=== PATIENT | male | born 1980 | race Caucasian/White ===

== ENCOUNTER 2021-11-28 00:42 | Inpatient (IN) | payer BC ==
[2021-11-28] VITALS (21 sets, daily range): BP systolic 126–207; BP diastolic 66–99
[~2021-11-28] VITALS: Ht 170.2 cm; Wt 150.4 kg
[~2021-11-28 00:42] MED LIST: ASPI-1265 PO; ATOR10TA PO; NICO-687 TD; PROM12.512 PO
[2021-11-28 02:00] LABS: BASOPHILS # (AUTO) 0.1 X10'3 (0-0.2); EOSINOPHILS # (AUTO) 0.2 X10'3 (0-0.9); EOSINOPHILS % (AUTO) 1.7 % (0-6); HEMATOCRIT 42.9 % (42.0-52.0); HEMOGLOBIN 14.3 g/dl (14.0-17.9); LYMPHOCYTES # (AUTO) 1.7 X10'3 (1.1-4.8); LYMPHOCYTES % (AUTO) 15.5 % (21-51); MEAN CORPUSCULAR HEMOGLOBIN 30.2 PG (27.0-31.0); MEAN CORPUSCULAR HGB CONC 33.3 g/dL (33.0-36.5); MEAN CORPUSCULAR VOLUME 90.7 FL (78-98); MEAN PLATELET VOLUME 8.5 FL (7.4-10.4); MONOCYTES # (AUTO) 0.8 X10'3 (0-0.9); MONOCYTES % (AUTO) 7.7 % (2-12); NEUTROPHILS # (AUTO) 8.1 X10'3 (1.8-7.7); NEUTROPHILS % (AUTO) 74.1 % (42-75); PLATELET COUNT 239 X10'3 (140-440); RED BLOOD COUNT 4.73 X10'6 (4.70-6.10); RED CELL DISTRIBUTION WIDTH 14.5 % (11.5-14.5); WHITE BLOOD COUNT 10.9 X10'3 (4.5-11.0)
[2021-11-28 02:22] LABS: ALANINE AMINOTRANSFERASE 63 U/L (12-78); ALBUMIN/GLOBULIN RATIO 1.2 (1.1-1.5); ALKALINE PHOSPHATASE 103 IU/L (46-116); ANION GAP 10 (8-16); ASPARTATE AMINO TRANSFERASE 28 U/L (10-37); BILIRUBIN,TOTAL 0.2 MG/DL (0.1-1.0); BLOOD UREA NITROGEN 19 MG/DL (7-18); BUN/CREATININE RATIO 16.2 (5.4-32.0); CALCIUM 9.7 MG/DL (8.5-10.1); CHLORIDE 99 MMOL/L (99-107); CREATININE 1.17 MG/DL (0.60-1.10); GLUCOSE 191 MG/DL (70-104); SODIUM 136 MMOL/L (135-145); TOTAL CARBON DIOXIDE 27.4 MMOL/L (24-32); TOTAL PROTEIN 7.3 G/DL (6.4-8.2); eGFR 68 ML/MIN
[2021-11-28 02:38] LABS: LIPASE 77 U/L (73-393)
[2021-11-28] MEDS ORDERED: ondansetron/PF 4mg/2ml inj IV ONE (02:45)
[2021-11-28] MEDS ORDERED: morphine 4 MG/ML inj SYRINge IV PRN ×2 (02:45→10:10)
[2021-11-28] MEDS ORDERED: normal saline 1000ML IV soln IVB ONE (02:45)
[2021-11-28] MEDS ORDERED: HYDROmorphone 1 mg/ml syringe IV ONE (04:10)
[2021-11-28] MEDS ORDERED: piperacillin/tazo 3.375gm/50ml 50 ML IV ONE (04:15)
[2021-11-28 04:32] LABS: CHOL/HDL RATIO 3.4 (0.00-4.99); CHOLESTEROL 181 MG/DL (0-200); HDL CHOLESTEROL 53 MG/DL (35-60); LDL CHOLESTEROL 104 MG/DL (50-100); TRIGLYCERIDES 61 MG/DL (20-135)
[2021-11-28] MEDS ORDERED: AMLO1CAP77 PO (06:24)
[2021-11-28] MEDS ORDERED: LOSA25TA96 PO (06:24)
[2021-11-28] MEDS ORDERED: METO1TAB12 PO ×2 (06:24)
[2021-11-28] MEDS ORDERED: BUPIVAcaine 0.5% inj/PF 30 ML ONE (09:03)
[2021-11-28] MEDS ORDERED: ondansetron/PF 4mg/2ml inj IV PRN ×2 (10:10→11:30)
[2021-11-28] MEDS ORDERED: meperidine/PF 25mg/ml syringe IV PRN ×3 (10:10)
[2021-11-28] MEDS ORDERED: morphine 2 MG/ML inj. syringe IV PRN (10:10)
[2021-11-28] MEDS ORDERED: proCHLORperazine 10 MG/2 ml inj IV PRN (10:10)
[2021-11-28] MEDS ORDERED: fentaNYL /PF 50mcg/ml 5ml ampule ONE (10:17)
[2021-11-28] MEDS ORDERED: propofol inj 20 ML IV ONE (10:17)
[2021-11-28] MEDS ORDERED: midazolam 1 mg/ML 2ml injection ONE (10:17)
[2021-11-28] MEDS ORDERED: rocuronium 10mg/ml inj IV ONE (10:18)
[2021-11-28] MEDS ORDERED: ceFAZolin 1000mg inj ONE ×3 (10:37)
[2021-11-28] MEDS ORDERED: bacitracin 15gm ointment TP ONE (11:10)
[2021-11-28] MEDS ORDERED: neostigmine methylsulfate 1 MG/ML 10ml vial ONE (11:11)
[2021-11-28] MEDS ORDERED: glycopyrrolate 0.2mg/ml inj ONE (11:13)
[2021-11-28] MEDS ORDERED: acetaminophen 1,000mg/100ml IV 100 ML IV ONE (11:18)
[2021-11-28] MEDS ORDERED: ketorolac trometh. 30mg/ml inj. ONE (11:18)
[2021-11-28] MEDS ORDERED: magnesium 4gm in 100ml NS 100 ML IV PRN (11:30)
[2021-11-28] MEDS ORDERED: magnesium 2GM in 50ml NS 50 ML IV PRN (11:30)
[2021-11-28] MEDS ORDERED: sugammadex 200mg/2ml injection IV ONE (11:30)
[2021-11-28] MEDS: normal saline 1000ml 1,000 ML IV SCH ×2 (11:30→21:52)
[2021-11-28] MEDS ORDERED: potassium CL 10mEq/100ml bag 100 ML IV PRN (11:30)
[2021-11-28] MEDS ORDERED: HYDROcodone/acetaminophen 5mg/325mg tablet PO PRN (11:30)
[2021-11-28] MEDS ORDERED: potassium Cl 20 mEq SR tablet PO PRN ×2 (11:30)
[2021-11-28] MEDS ORDERED: magnesium Cl slow-release 64mg tablet PO PRN (11:30)
--- NOTE | 2021-11-28 11:34 | NUR ---
Received from OR via [facility], accompanied by Anesthesiologist DR KNIGHT and report given by Anesthesiologist AND POULTRY INSEMINATOR. PT VERY DROWSY, NO S/S OF DISTRESS/DISCOMFORT. ABDOMEN W/4 LAP SITES W/BANDAIDS CDI. Addendum: 11/28/21 at 1215 by Manasa Waters RN Amended: Links added.
[2021-11-28] MEDS ORDERED: labetalol 20mg/4ml (5mg/ml) syringe IV ONE (11:53)
[2021-11-28] MEDS: labetalol 20mg/4ml (5mg/ml) syringe IV PRN ×2 (11:57→12:13)
[2021-11-28] MEDS ORDERED: LOSA50TA64 PO (12:13)
[2021-11-28] MEDS ORDERED: METO100T14 PO (12:13)
[2021-11-28] MEDS ORDERED: AMLO10TA13 PO (12:13)
[2021-11-28] MEDS: ringers solution, lacted 1,000 ML IV SCH ×3 (12:36→14:28)
--- NOTE | 2021-11-28 13:14 | NUR ---
Report called to receiving nurse. Transferred via GURNEY ON 02 W/3 BAGS OF Belongings TO ROOM 355B, TRANSFERRED PT OVER TO BED W/EASY SLIDE, PT TOLERATED WELL. BLL, CALL LIGHT GIVEN, SIDE RAILS UP X 2, NURSES AIDE AT BEDSIDE TO RECEIVE PT, RECEIVING RN AWARE OF PTS ARRIVAL. Special Issues communicated to receiving nurse. YES. Addendum: 11/28/21 at 1331 by Manasa Waters RN Amended: Links added.
--- NOTE | 2021-11-28 14:10 | NUR ---
Student documentation: I have reviewed all interventions, assessments performed and documented by Lo PATEL. Student Medication Administration: For all medication-pass' in the time frame of 8616-9628, all medications were reviewed, dispensed, administered and documented per hospital policy by Lo PATEL.
[2021-11-28 15:14] LABS: MAGNESIUM 1.9 MG/DL (1.5-2.4); POTASSIUM 4.2 MMOL/L (3.5-5.1)
--- NOTE | 2021-11-28 18:13 | NUR ---
Problems reprioritized. Patient report given, questions answered & plan of care reviewed with ARSH ALVES.
--- NOTE | 2021-11-28 18:24 | NUR ---
Patient in room [facility]. I have received report from Keturah CABAN and had the opportunity to ask questions and assume patient care.
[2021-11-28] MEDS: morphine 2 MG/ML inj. syringe IV PRN (19:12)
[2021-11-28] MEDS: K and/or MAG REPLACEMENT MC SCH (20:00)
[2021-11-28] MEDS ORDERED: temazepam 15mg capsule PO PRN (21:00)
[2021-11-29] VITALS: BP 156/73
[2021-11-29] MEDS: morphine 2 MG/ML inj. syringe IV PRN ×2 (00:08→03:41)
[2021-11-29 04:00] VITALS: BP 141/73
[2021-11-29 06:42] LABS: BASOPHILS # (AUTO) 0.1 X10'3 (0-0.2); BASOPHILS % (AUTO) 0.6 % (0-1); EOSINOPHILS # (AUTO) 0.1 X10'3 (0-0.9); EOSINOPHILS % (AUTO) 0.6 % (0-6); HEMATOCRIT 39.2 % (42.0-52.0); HEMOGLOBIN 13.2 g/dl (14.0-17.9); LYMPHOCYTES # (AUTO) 1.4 X10'3 (1.1-4.8); LYMPHOCYTES % (AUTO) 13.1 % (21-51); MEAN CORPUSCULAR HEMOGLOBIN 30.4 PG (27.0-31.0); MEAN CORPUSCULAR HGB CONC 33.7 g/dL (33.0-36.5); MEAN CORPUSCULAR VOLUME 90.3 FL (78-98); MEAN PLATELET VOLUME 8.5 FL (7.4-10.4); MONOCYTES % (AUTO) 9.6 % (2-12); NEUTROPHILS # (AUTO) 8.1 X10'3 (1.8-7.7); NEUTROPHILS % (AUTO) 76.1 % (42-75); PLATELET COUNT 216 X10'3 (140-440); RED BLOOD COUNT 4.34 X10'6 (4.70-6.10); RED CELL DISTRIBUTION WIDTH 14.8 % (11.5-14.5); WHITE BLOOD COUNT 10.7 X10'3 (4.5-11.0)
--- NOTE | 2021-11-29 06:50 | NUR ---
Problems reprioritized. Patient report given, questions answered & plan of care reviewed with Keturah CABAN.
[2021-11-29 07:00] VITALS: BP 145/79
[2021-11-29 07:48] LABS: ALBUMIN 3.4 G/DL (3.4-5.0); ANION GAP 11 (8-16); BLOOD UREA NITROGEN 17 MG/DL (7-18); BUN/CREATININE RATIO 18.7 (5.4-32.0); CALCIUM 8.5 MG/DL (8.5-10.1); CHLORIDE 103 MMOL/L (99-107); CREATININE 0.91 MG/DL (0.60-1.10); GLUCOSE 123 MG/DL (70-104); MAGNESIUM 1.8 MG/DL (1.5-2.4); POTASSIUM 4.4 MMOL/L (3.5-5.1); SODIUM 141 MMOL/L (135-145); eGFR > 90 ML/MIN
[2021-11-29] MEDS: K and/or MAG REPLACEMENT MC SCH (08:00)
[2021-11-29] MEDS: normal saline 1000ml 1,000 ML IV SCH ×2 (08:11→17:30)
--- NOTE | 2021-11-29 09:07 | NUR ---
Patient room change to 356B
--- NOTE | 2021-11-29 10:44 | NUR ---
O2 Sat at rest on room air: 87% If below 89%: Recovery O2 Sat at rest on 2 LPM: 94%:___% via (mask/nasal cannula, etc..) No further documentation is necessary. If O2 Sat did not drop below 89% on room air,ambulate patient on room air. O2 Sat while ambulating on room air:___% Recovery O2 Sat while ambulating on ___LPM:___% No further documentation is necessary. If patient does not drop below 89% while ambulating, he/she does not qualify for home O2.
[2021-11-29 11:00] VITALS: BP 158/89
--- NOTE | 2021-11-29 18:08 | NUR ---
Problems reprioritized. Patient report given, questions answered & plan of care reviewed with Juliet MOURA .
--- NOTE | 2021-11-29 19:00 | NUR ---
PER AM RN, SARAH Gallego, PT'S OXYGEN SATURATIONS WERE 96% ON RA.
== END 2021-11-29 18:56 | disposition home or self-care (01) | DRG 418 ==
LOC: ER 00:43 → SUR 3N 11:48 → ER 14:18 → SUR 3N 14:18 → ER 11-29 09:00 → SUR 3N 11-29 09:00
PROVIDERS: ADMIT Internal Medicine; ATTEND Internal Medicine
PROC: 0WQF4ZZ Repair Abdominal Wall, Percutaneous Endoscopic Approach (ICD-10-PCS; 2021-11-28)
PROC: 0FT44ZZ Resection of Gallbladder, Percutaneous Endoscopic Approach (ICD-10-PCS; principal; 2021-11-28 10:13)
DX: K81.0 Acute cholecystitis (principal); Z68.43 Body mass index [BMI] 50.0-59.9, adult; Z60.2 Problems related to living alone; I10 Essential (primary) hypertension; E66.01 Morbid (severe) obesity due to excess calories; Z20.822 Contact with and (suspected) exposure to COVID-19; K42.9 Umbilical hernia without obstruction or gangrene; Z86.73 Personal history of transient ischemic attack (TIA), and cerebral infarction without residual deficits; Z79.899 Other long term (current) drug therapy; Z79.82 Long term (current) use of aspirin
CPT/HCPCS: 96374; 96375; 99285; Z7506; Z7508; 36415; 71045; 74176; 80048; 80053; 80061; 83605; 83690; 83735; 83880; 84132; 84484; 85025; 87635; 93005; A4215; A4618; A7000; C9803; G0378; J0131; J0690; J1170; J1885; J2250; J2270; J2405; J2543; J2704; J2710; J3010; J3490; J7030; J7120; S0020

== ENCOUNTER 2022-10-11 17:24 | Inpatient (IN) | payer BC ==
[~2022-10-11] VITALS: Ht 170.2 cm; Wt 149.5 kg
[~2022-10-11 17:24] MED LIST changes: +AMLO10TA13 PO; -ASPI-1265 PO; -ATOR10TA PO; +LOSA50TA64 PO; +METO100T14 PO; -NICO-687 TD; -PROM12.512 PO
[2022-10-11 18:05] LABS: BASOPHILS # (AUTO) 0.1 X10'3 (0-0.2); BASOPHILS % (AUTO) 0.7 % (0-1); EOSINOPHILS # (AUTO) 0.2 X10'3 (0-0.9); EOSINOPHILS % (AUTO) 2.1 % (0-6); HEMATOCRIT 42.7 % (42.0-52.0); HEMOGLOBIN 13.8 g/dl (14.0-17.9); LYMPHOCYTES % (AUTO) 16.9 % (21-51); MEAN CORPUSCULAR HEMOGLOBIN 29.4 PG (27.0-31.0); MEAN CORPUSCULAR HGB CONC 32.4 g/dL (33.0-36.5); MEAN CORPUSCULAR VOLUME 90.6 FL (78-98); MEAN PLATELET VOLUME 8.9 FL (7.4-10.4); MONOCYTES # (AUTO) 0.8 X10'3 (0-0.9); MONOCYTES % (AUTO) 6.8 % (2-12); NEUTROPHILS # (AUTO) 8.8 X10'3 (1.8-7.7); NEUTROPHILS % (AUTO) 73.5 % (42-75); PLATELET COUNT 244 X10'3 (140-440); RED BLOOD COUNT 4.71 X10'6 (4.70-6.10); RED CELL DISTRIBUTION WIDTH 15.2 % (11.5-14.5); WHITE BLOOD COUNT 11.9 X10'3 (4.5-11.0)
[2022-10-11 18:29] LABS: ALANINE AMINOTRANSFERASE 58 U/L (12-78); ALBUMIN 3.9 G/DL (3.4-5.0); ALBUMIN/GLOBULIN RATIO 1.1 (1.1-1.5); ALKALINE PHOSPHATASE 96 IU/L (46-116); ANION GAP 7 (8-16); ASPARTATE AMINO TRANSFERASE 33 U/L (10-37); BILIRUBIN,TOTAL 0.6 MG/DL (0.1-1.0); BLOOD UREA NITROGEN 19 MG/DL (7-18); BUN/CREATININE RATIO 21.1 (5.4-32.0); CALCIUM 9.7 MG/DL (8.5-10.1); CHLORIDE 103 MMOL/L (99-107); GLUCOSE 107 MG/DL (70-104); MAGNESIUM 2.1 MG/DL (1.5-2.4); SODIUM 140 MMOL/L (135-145); TOTAL CARBON DIOXIDE 30.1 MMOL/L (24-32); TOTAL PROTEIN 7.4 G/DL (6.4-8.2); eGFR > 90 ML/MIN
[2022-10-11] MEDS ORDERED: niCARDipine-NS 40mg/200ml IVPB 200 ML IV SCH (19:25)
[2022-10-11] MEDS: niCARDipine-NS 40mg/200ml IVPB 200 ML IV SCH (20:29)
[2022-10-11] MEDS ORDERED: metoprolol succinate 25mg (24-HOUR) SR. Tablet PO STA (20:52)
[2022-10-11] MEDS ORDERED: furosemide 10 MG/1 ML 10ml inj IV ONE (20:55)
[2022-10-11] MEDS ORDERED: amLODIPine 5mg tablet PO ONE (20:57)
[2022-10-12] VITALS (7 sets, daily range): BP systolic 136–179; BP diastolic 69–91
[2022-10-12] MEDS ORDERED: magnesium hydroxide 30ml (MOM) UD suspension PO PRN (01:35)
[2022-10-12] MEDS ORDERED: magnesium 4gm in 100ml NS 100 ML IV PRN (01:35)
[2022-10-12] MEDS ORDERED: mag hydrox/Alum hydrox/simeth 30ml oral suspension PO PRN (01:35)
[2022-10-12] MEDS ORDERED: PERFLUTREN PROTEIN-A MICROSPHR (Optison) 0.22 MG/ML 3ML VIAL IV ONE (01:35)
[2022-10-12] MEDS ORDERED: potassium Cl 40MEQ/1/2NS 520ml 520 ML IV PRN (01:35)
[2022-10-12] MEDS ORDERED: potassium Cl 20 mEq SR tablet PO PRN ×2 (01:35)
[2022-10-12] MEDS ORDERED: magnesium Cl slow-release 64mg tablet PO PRN (01:35)
[2022-10-12] MEDS ORDERED: ondansetron/PF 4mg/2ml inj IV PRN (01:35)
[2022-10-12] MEDS: acetaminophen 325mg tablet PO PRN ×2 (04:47→12:39)
[2022-10-12] MEDS: niCARDipine-NS 40mg/200ml IVPB 200 ML IV SCH ×3 (06:02→21:51)
[2022-10-12] MEDS: docusate sod 100mg capsule PO SCH ×2 (07:16→21:24)
[2022-10-12] MEDS: furosemide 10 MG/1 ML 10ml inj IV SCH (07:32)
[2022-10-12] MEDS: metoprolol succinate 25mg (24-HOUR) SR. Tablet PO SCH (07:33)
[2022-10-12] MEDS: lisinopril 10 MG tablet PO SCH (07:33)
[2022-10-12] MEDS: heparin, porcine 5000 units/ml vial SQ SCH ×2 (07:33→21:31)
[2022-10-12] MEDS ORDERED: amLODIPine 5mg tablet PO ONE (12:54)
[2022-10-12] MEDS ORDERED: metoprolol tartrate 1mg/ml inj IV PRN (13:50)
[2022-10-12] MEDS ORDERED: regadenoson 0.4mg/5ml syringe IV PRN (13:50)
[2022-10-12] MEDS ORDERED: aminophylline 250mg/10ml inj. IV PRN (13:50)
[2022-10-12] MEDS ORDERED: nitroGLYCERIN 0.4mg SUBLingual tab SL PRN (13:50)
[2022-10-13] VITALS (27 sets, daily range): BP systolic 110–167; BP diastolic 59–96
[2022-10-13] MEDS: acetaminophen 325mg tablet PO PRN (02:04)
[2022-10-13 06:20] LABS: BASOPHILS # (AUTO) 0.1 X10'3 (0-0.2); BASOPHILS % (AUTO) 0.5 % (0-1); EOSINOPHILS # (AUTO) 0.2 X10'3 (0-0.9); EOSINOPHILS % (AUTO) 1.2 % (0-6); HEMATOCRIT 40.2 % (42.0-52.0); LYMPHOCYTES # (AUTO) 1.8 X10'3 (1.1-4.8); LYMPHOCYTES % (AUTO) 13.3 % (21-51); MEAN CORPUSCULAR HEMOGLOBIN 29.3 PG (27.0-31.0); MEAN CORPUSCULAR HGB CONC 32.3 g/dL (33.0-36.5); MEAN CORPUSCULAR VOLUME 90.8 FL (78-98); MEAN PLATELET VOLUME 8.9 FL (7.4-10.4); MONOCYTES # (AUTO) 1.1 X10'3 (0-0.9); MONOCYTES % (AUTO) 8.1 % (2-12); NEUTROPHILS # (AUTO) 10.4 X10'3 (1.8-7.7); NEUTROPHILS % (AUTO) 76.9 % (42-75); PLATELET COUNT 241 X10'3 (140-440); RED BLOOD COUNT 4.43 X10'6 (4.70-6.10); RED CELL DISTRIBUTION WIDTH 14.9 % (11.5-14.5); WHITE BLOOD COUNT 13.6 X10'3 (4.5-11.0)
[2022-10-13 06:24] LABS: ALANINE AMINOTRANSFERASE 59 U/L (12-78); ALBUMIN 3.6 G/DL (3.4-5.0); ALBUMIN/GLOBULIN RATIO 1.1 (1.1-1.5); ALKALINE PHOSPHATASE 88 IU/L (46-116); ANION GAP 7 (8-16); ASPARTATE AMINO TRANSFERASE 33 U/L (10-37); BILIRUBIN,TOTAL 0.7 MG/DL (0.1-1.0); BLOOD UREA NITROGEN 22 MG/DL (7-18); BUN/CREATININE RATIO 22.7 (5.4-32.0); CALCIUM 9.1 MG/DL (8.5-10.1); CHLORIDE 101 MMOL/L (99-107); CHOL/HDL RATIO 3.2 (0.00-4.99); CHOLESTEROL 152 MG/DL (0-200); CREATININE 0.97 MG/DL (0.60-1.10); GLUCOSE 110 MG/DL (70-104); HDL CHOLESTEROL 47 MG/DL (35-60); LDL CHOLESTEROL 93 MG/DL (50-100); POTASSIUM 3.6 MMOL/L (3.5-5.1); SODIUM 138 MMOL/L (135-145); TOTAL CARBON DIOXIDE 30.4 MMOL/L (24-32); TOTAL PROTEIN 6.9 G/DL (6.4-8.2); TRIGLYCERIDES 50 MG/DL (20-135); eGFR 84 ML/MIN
[2022-10-13] MEDS: niCARDipine-NS 40mg/200ml IVPB 200 ML IV SCH ×3 (06:44→19:26)
[2022-10-13] MEDS: docusate sod 100mg capsule PO SCH ×2 (08:00→19:26)
[2022-10-13 08:06] LABS: HEMOGLOBIN A1C 6.5 % (4.5-6.2)
[2022-10-13] MEDS: amLODIPine 5mg tablet PO SCH (10:47)
[2022-10-13] MEDS: furosemide 10 MG/1 ML 10ml inj IV SCH (10:48)
[2022-10-13] MEDS: lisinopril 10 MG tablet PO SCH (10:49)
[2022-10-13] MEDS: metoprolol succinate 25mg (24-HOUR) SR. Tablet PO SCH (10:49)
[2022-10-13] MEDS: heparin, porcine 5000 units/ml vial SQ SCH ×2 (10:50→19:25)
[2022-10-13] MEDS ORDERED: lisinopril 10 MG tablet PO ONE (20:00)
[2022-10-13] MEDS ORDERED: metoprolol succinate 25mg (24-HOUR) SR. Tablet PO ONE (20:00)
[2022-10-14 02:00] VITALS: BP 156/96
[2022-10-14] MEDS: niCARDipine-NS 40mg/200ml IVPB 200 ML IV SCH (04:28)
--- NOTE | 2022-10-14 06:12 | NUR ---
[id number] Pt. is awake alert oriented has visitor at [facility] wants to go home tonight advised to stay until am for MD discharge. Pt. has been off antihypertensive gtt since 4pm. Evening doses of po antihypertensives given. BP Systolic has been 155. Pt. is ambulatory to BR voids per urinal claire clear urine. Plan for home when medically cleared on home hypertensive meds.
[2022-10-14 07:00] VITALS: BP 141/91
[2022-10-14] MEDS ORDERED: lisinopril 10 MG tablet PO SCH (08:00)
[2022-10-14] MEDS ORDERED: metoprolol succinate 25mg (24-HOUR) SR. Tablet PO SCH (08:00)
[2022-10-14] MEDS: heparin, porcine 5000 units/ml vial SQ SCH (08:03)
[2022-10-14] MEDS: amLODIPine 5mg tablet PO SCH (08:03)
[2022-10-14] MEDS: docusate sod 100mg capsule PO SCH (08:03)
[2022-10-14 08:04] VITALS: BP_SYST 141
[2022-10-14 09:49] LABS: BASOPHILS # (AUTO) 0.1 X10'3 (0-0.2); BASOPHILS % (AUTO) 0.8 % (0-1); EOSINOPHILS # (AUTO) 0.2 X10'3 (0-0.9); EOSINOPHILS % (AUTO) 2.4 % (0-6); HEMATOCRIT 42.3 % (42.0-52.0); HEMOGLOBIN 13.9 g/dl (14.0-17.9); LYMPHOCYTES # (AUTO) 1.7 X10'3 (1.1-4.8); LYMPHOCYTES % (AUTO) 16.8 % (21-51); MEAN CORPUSCULAR HEMOGLOBIN 29.8 PG (27.0-31.0); MEAN CORPUSCULAR HGB CONC 32.9 g/dL (33.0-36.5); MEAN CORPUSCULAR VOLUME 90.8 FL (78-98); MEAN PLATELET VOLUME 8.5 FL (7.4-10.4); MONOCYTES % (AUTO) 10.1 % (2-12); NEUTROPHILS # (AUTO) 7.1 X10'3 (1.8-7.7); NEUTROPHILS % (AUTO) 69.9 % (42-75); PLATELET COUNT 254 X10'3 (140-440); RED BLOOD COUNT 4.66 X10'6 (4.70-6.10); RED CELL DISTRIBUTION WIDTH 15.1 % (11.5-14.5); WHITE BLOOD COUNT 10.2 X10'3 (4.5-11.0)
[2022-10-14 10:07] LABS: ALANINE AMINOTRANSFERASE 60 U/L (12-78); ALBUMIN 3.9 G/DL (3.4-5.0); ALKALINE PHOSPHATASE 101 IU/L (46-116); ASPARTATE AMINO TRANSFERASE 34 U/L (10-37); BILIRUBIN,TOTAL 0.6 MG/DL (0.1-1.0); BLOOD UREA NITROGEN 21 MG/DL (7-18); BUN/CREATININE RATIO 20.2 (5.4-32.0); CALCIUM 9.4 MG/DL (8.5-10.1); CHLORIDE 101 MMOL/L (99-107); CREATININE 1.04 MG/DL (0.60-1.10); MAGNESIUM 2.1 MG/DL (1.5-2.4); POTASSIUM 3.6 MMOL/L (3.5-5.1); TOTAL CARBON DIOXIDE 28.6 MMOL/L (24-32); TOTAL PROTEIN 7.7 G/DL (6.4-8.2); eGFR 78 ML/MIN
[2022-10-14 10:24] LABS: ANION GAP 9 (8-16); GLUCOSE 117 MG/DL (70-104); SODIUM 139 MMOL/L (135-145)
[2022-10-14] MEDS ORDERED: METO-395 PO (10:39)
[2022-10-14] MEDS ORDERED: AMLO10TA13 PO (10:39)
[2022-10-14] MEDS ORDERED: LISI10TA27 PO (10:39)
[2022-10-14] MEDS ORDERED: ASPI81TA52 PO (10:39)
[2022-10-14] MEDS ORDERED: ATOR20TA PO (10:39)
== END 2022-10-14 11:08 | disposition home or self-care (01) | DRG 189 ==
LOC: ER 17:24 → ED HOLD 10-12 01:42 → EDBEDREQ 10-12 02:24 → PCU 3S 10-12 19:03
PROVIDERS: ADMIT Family Medicine; ATTEND Family Medicine
PROC: 4A02XM4 Measurement of Cardiac Total Activity, External Approach (ICD-10-PCS; principal; 2022-10-13)
PROC: 3E033HZ Introduction of Radioactive Substance into Peripheral Vein, Percutaneous Approach (ICD-10-PCS; 2022-10-13)
DX: J96.01 Acute respiratory failure with hypoxia (principal); I16.1 Hypertensive emergency; Z68.43 Body mass index [BMI] 50.0-59.9, adult; F17.210 Nicotine dependence, cigarettes, uncomplicated; Z60.2 Problems related to living alone; I11.0 Hypertensive heart disease with heart failure; I50.9 Heart failure, unspecified; D72.829 Elevated white blood cell count, unspecified; E66.01 Morbid (severe) obesity due to excess calories; R77.8 Other specified abnormalities of plasma proteins; H53.2 Diplopia; Z79.899 Other long term (current) drug therapy; Z80.0 Family history of malignant neoplasm of digestive organs; Z82.49 Family history of ischemic heart disease and other diseases of the circulatory system; Z83.3 Family history of diabetes mellitus; Z86.73 Personal history of transient ischemic attack (TIA), and cerebral infarction without residual deficits; Z90.49 Acquired absence of other specified parts of digestive tract; Z71.3 Dietary counseling and surveillance; Z71.6 Tobacco abuse counseling
CPT/HCPCS: 36415; 71045; 78452; 80053; 80061; 83036; 83735; 83880; 84484; 85025; 93017; 93306; 99291; A4615; A9500; G0378; J1644; J1940; J2785; J3490